=== PATIENT | male | born 1960 | race Caucasian/White ===

== ENCOUNTER 2018-10-26 08:03 | Day surgery (SDC) | payer BC ==
[~2018-10-26] VITALS: Ht 182.9 cm; Wt 126.0 kg
[2018-10-26 08:45] LABS: HEMATOCRIT 46.1 % (42.0-52.0); HEMOGLOBIN 15.5 g/dl (13.5-18.0); MEAN CELL VOLUME 90 fl (80.0-100.0); MEAN CORPUSCULAR HEMOGLOBIN 30 pg (27.0-31.0); MEAN CORPUSCULAR HGB CONC 34 g/dl (33.0-37.0); MEAN PLATELET VOLUME 10.1 fl (7.4-10.4); PLATELET COUNT 207 K/mm3 (130-400); RED BLOOD COUNT 5.12 M/mm3 (4.20-5.60); REDCELL DISTRIBUTION WIDTH-CV 12.9 % (11.5-14.5)
[2018-10-26 08:52] LABS: INR 1.1 (0.8-3.0); PROTHROMBIN TIME 13.4 SECONDS (9.7-12.8)
[2018-10-26] MEDS ORDERED: GLUCOTROL 5M5 MG/TAB PO (08:54)
[2018-10-26] MEDS ORDERED: LIPITOR 10MG10 MG PO (08:54)
[2018-10-26] MEDS ORDERED: ELIQUIS 5MG PO (08:58)
[2018-10-26 08:59] VITALS: BP 117/95; PULSE 87; TEMP 97.5
[2018-10-26] MEDS ORDERED: GLUCOPHAGE1000 MG PO (08:59)
[2018-10-26] MEDS ORDERED: BETAPACE 120MG120 MG PO (08:59)
[2018-10-26 09:02] LABS: CALCIUM 9.6 mg/dL (8.4-10.2); CREATININE, serum 0.92 (0.66-1.25); POTASSIUM 4.8 mmol/L (3.4-5.0)
[2018-10-26 09:30] VITALS: BP 126/96; PULSE 101
--- NOTE | 2018-10-26 09:33 | NUR ---
DR HUERTA ADMINISTERED 80MG PROPOFOL IV. SUCCESSFUL CARDIOVERSION AT 200 JOULES, POST RHYTHM IS NS WITH RATE 48 INITALLY, INCREASED TO 60'S LESS THAN 5 MIN AFTER PROCEDURE. POST EKG COMPLETED. SEE BEDSIDE PROCEDURE NOTE FOR FURTHER INFORMATION
[2018-10-26 09:45] VITALS: BP 118/86; PULSE 59
--- NOTE | 2018-10-26 09:45 | NUR ---
CV complete and report received from Aviva CALDERON. Pt resting well in bed, at bedside.
[2018-10-26 10:00] VITALS: BP 112/81; PULSE 75
[2018-10-26 10:15] VITALS: BP 104/78; PULSE 68; TEMP 97.8
[2018-10-26 10:30] VITALS: BP 115/82; PULSE 77
--- NOTE | 2018-10-26 10:30 | NUR ---
Pt has ambulated and brandy PO intake s n/v. PIV removed with catheter intact.
--- NOTE | 2018-10-26 10:40 | NUR ---
Pt discharged per w/c by nurse with .
== END 2018-10-26 12:39 | disposition home or self-care (01) ==
LOC: COL.CAR 08:03
PROVIDERS: Internal Medicine Cardiovascular Disease
DX: I48.0 Paroxysmal atrial fibrillation (principal); E78.5 Hyperlipidemia, unspecified; E11.9 Type 2 diabetes mellitus without complications; G47.33 Obstructive sleep apnea (adult) (pediatric); Z79.01 Long term (current) use of anticoagulants; Z79.84 Long term (current) use of oral hypoglycemic drugs; Z82.49 Family history of ischemic heart disease and other diseases of the circulatory system; Z82.0 Family history of epilepsy and other diseases of the nervous system
CPT/HCPCS: J7030

== ENCOUNTER 2019-09-20 10:16 | Day surgery (SDC) | payer BC ==
[~2019-09-20] VITALS: Ht 182.9 cm; Wt 126.0 kg
[~2019-09-20 10:16] MED LIST: BETAPACE 120MG120 MG PO; ELIQUIS 5MG PO; GLUCOPHAGE1000 MG PO; GLUCOTROL 5M5 MG/TAB PO; LIPITOR 10MG10 MG PO
[2019-09-20] MEDS ORDERED: COUMADIN 5MG5 MG/TAB PO (10:40)
[2019-09-20 11:06] LABS: HEMATOCRIT 45.3 % (42.0-52.0); HEMOGLOBIN 15.3 g/dl (13.5-18.0); MEAN CELL VOLUME 90 fl (80.0-100.0); MEAN CORPUSCULAR HEMOGLOBIN 30 pg (27.0-31.0); MEAN CORPUSCULAR HGB CONC 34 g/dl (33.0-37.0); MEAN PLATELET VOLUME 10.2 fl (7.4-10.4); PLATELET COUNT 207 K/mm3 (130-400); RED BLOOD COUNT 5.04 M/mm3 (4.20-5.60); REDCELL DISTRIBUTION WIDTH-CV 13.6 % (11.5-14.5)
[2019-09-20 11:17] LABS: INR 2.4 (0.8-3.0); PROTHROMBIN TIME 26.9 SECONDS (9.7-12.8)
[2019-09-20 11:20] LABS: PARTIAL THROMBOPLASTIN TIME 50.9 SECONDS (26.0-37.0)
[2019-09-20 11:22] LABS: CALCIUM 9.3 mg/dL (8.4-10.2); CREATININE, serum 0.94 (0.66-1.25); POTASSIUM 4.7 mmol/L (3.4-5.0)
[2019-09-20 11:45] VITALS: BP 104/73; PULSE 69; TEMP 98.1
[2019-09-20 11:53] LABS: THYROID STIMULATING HORMONE 2.08 uIU/mL (0.465-4.680)
[2019-09-20 12:00] VITALS: BP 100/75; PULSE 68
[2019-09-20 12:15] VITALS: BP 107/85; PULSE 70
[2019-09-20 12:30] VITALS: BP 103/83; PULSE 66
--- NOTE | 2019-09-20 12:30 | NUR ---
Discharge instructions reviewed with pt. Pt voices understanding. Gag reflex intact, no N/V. Pt ambulated in and around the unit with no complications. IV was discontinued with catheter tip intact, no phlebitis or infiltration. Pt was discharged via w/c to the care of son in private vehicle with discharge instructions in hand.
--- NOTE | 2019-09-20 12:56 | NUR ---
BLOOD GLUCOSE= 199
== END 2019-09-20 12:30 | disposition home or self-care (01) ==
LOC: COL.CAR 10:16
PROVIDERS: Internal Medicine Cardiovascular Disease
DX: I48.0 Paroxysmal atrial fibrillation (principal); I51.7 Cardiomegaly; I27.20 Pulmonary hypertension, unspecified; I77.819 Aortic ectasia, unspecified site; E11.9 Type 2 diabetes mellitus without complications; E78.2 Mixed hyperlipidemia; Z79.01 Long term (current) use of anticoagulants; Z79.84 Long term (current) use of oral hypoglycemic drugs
CPT/HCPCS: J2704; J7120

== ENCOUNTER 2020-11-20 12:28 | Day surgery (SDC) | payer BC ==
[~2020-11-20] VITALS: Ht 182.9 cm; Wt 122.0 kg
[~2020-11-20 12:28] MED LIST changes: +COUMADIN 5MG5 MG/TAB PO
[2020-11-20 13:15] LABS: HEMATOCRIT 46.5 % (42.0-52.0); HEMOGLOBIN 15.5 g/dl (13.5-18.0); MEAN CELL VOLUME 90 fl (80.0-100.0); MEAN CORPUSCULAR HEMOGLOBIN 30 pg (27.0-31.0); MEAN CORPUSCULAR HGB CONC 33 g/dl (33.0-37.0); MEAN PLATELET VOLUME 10.3 fl (7.4-10.4); PLATELET COUNT 203 K/mm3 (130-400); RED BLOOD COUNT 5.15 M/mm3 (4.20-5.60); REDCELL DISTRIBUTION WIDTH-CV 13.5 % (11.5-14.5)
[2020-11-20 13:21] VITALS: BP 127/98; PULSE 81; TEMP 97.6
[2020-11-20 13:24] LABS: INR 2.6 (0.8-3.0); PROTHROMBIN TIME 28.9 SECONDS (9.7-12.8)
[2020-11-20 13:26] LABS: PARTIAL THROMBOPLASTIN TIME 38.1 SECONDS (26.0-37.0)
[2020-11-20 13:27] LABS: CALCIUM 9.5 mg/dL (8.4-10.2); CREATININE, serum 0.95 (0.66-1.25); MAGNESIUM 1.8 mg/dL (1.6-2.3); POTASSIUM 4.9 mmol/L (3.4-5.0)
[2020-11-20 13:59] LABS: THYROID STIMULATING HORMONE 1.759 uIU/mL (0.350-4.940)
[2020-11-20 14:20] VITALS: BP 105/83; PULSE 66
--- NOTE | 2020-11-20 14:20 | NUR ---
recieved report from Laron CALDERON, pt is fully awake and alert, in room, monitor showing sinus rhythm, called for EKG. pt takes ice tea, no c/o
[2020-11-20 14:35] VITALS: BP 110/86; PULSE 64
[2020-11-20 15:00] VITALS: BP 109/80; PULSE 60
--- NOTE | 2020-11-20 15:00 | NUR ---
pt up in room, iv d'cd intact, reviewed discharge inst. with pt on moderate sedation, activity and followup appts with verbal understanding. pt discharged to car with t [id number]
[2021-02-04] MEDS ORDERED: CEPHALEXIN500 M1 PO (09:35)
== END 2020-11-20 15:15 | disposition home or self-care (01) ==
LOC: COL.CAR 12:28
PROVIDERS: Internal Medicine Cardiovascular Disease
DX: I48.0 Paroxysmal atrial fibrillation (principal); G47.33 Obstructive sleep apnea (adult) (pediatric); E11.9 Type 2 diabetes mellitus without complications; E78.5 Hyperlipidemia, unspecified; Z79.84 Long term (current) use of oral hypoglycemic drugs; Z79.01 Long term (current) use of anticoagulants
CPT/HCPCS: J2704; J7120